=== PATIENT | male | born 1990 | race Caucasian/White ===

== ENCOUNTER 2018-11-29 18:42 | Inpatient (IN) | payer MEDICAID ==
[2018-11-29 19:33] LABS: ADD MAN DIFF? NO
[2018-11-29] MEDS: ONDANSETRON 4 MG INJ IV (19:37)
[2018-11-29] MEDS: SODIUM CHLORIDE 0.9% 1L BAG IV* (19:37)
[2018-11-29] MEDS: HYDROmorphONE 0.5 MG/0.5 ML SYG IV ×2 (19:38→20:59)
[2018-11-29 19:39] LABS: ABNORMAL IP MESSAGE 1; BASOPHIL # 0.1 10^3/ul (0.0-0.1); BASOPHILS % 0.3 % (0.0-2.0); HEMATOCRIT 49.4 % (42.0-52.0); HEMOGLOBIN 17.1 g/dl (14.0-18.0); LYMPHOCYTES # 2.8 10^3/ul (0.8-2.9); LYMPHOCYTES % 14.6 % (15.0-51.0); MEAN CORPUSCULAR HEMOGLOBIN 30.5 pg (29.0-33.0); MEAN CORPUSCULAR HGB CONC 34.6 g/dl (32.0-37.0); MEAN CORPUSCULAR VOLUME 88.1 fl (82.0-101.0); MEAN PLATELET VOLUME 11.1 fl (7.4-10.4); MONOCYTE # 1.8 10^3/ul (0.3-0.9); MONOCYTES % 9.7 % (0.0-11.0); NEUTROPHIL # 14.2 10^3/ul (1.6-7.5); PLATELET COUNT 214 10^3/UL (140-415); POSITIVE DIFF @See below; RED BLOOD COUNT 5.61 10^6/ul (4.70-6.10); RED CELL DISTRIBUTION WIDTH 13.7 % (11.5-14.5)
[2018-11-29 19:58] LABS: INR 1.08; PROTIME 14.1 Sec (11.9-14.9); PT RATIO 1.1
[2018-11-29 19:59] LABS: PARTIAL THROMBOPLASTIN TIME 30.6 Sec (23.0-35.0)
[2018-11-29] MEDS: PIPER-TAZO 3.375 GM IV (PMX) 100 ML IVPB (20:03)
[2018-11-29 20:06] LABS: ALANINE AMINOTRANSFERASE 215 IU/L (13-69); ALBUMIN 5.2 g/dl (3.3-4.9); ALKALINE PHOSPHATASE 76 IU/L (42-121); ANION GAP 21 (5-13); BILIRUBIN,INDIRECT 1.9 mg/dl (0-1.1); BILIRUBIN,TOTAL 1.9 mg/dl (0.2-1.3); BLOOD UREA NITROGEN 30 mg/dl (7-20); CALCIUM 9.9 mg/dl (8.4-10.2); CARBON DIOXIDE 19 mmol/L (21-31); CHLORIDE 104 mmol/L (97-110); CREATININE 3.46 mg/dl (0.61-1.24); Estimated GFR 21 mL/min (>60); GLUCOSE 122 mg/dl (70-220); POTASSIUM 3.2 mmol/L (3.5-5.1); SODIUM 144 mmol/L (135-144); TOTAL PROTEIN 8.9 g/dl (6.1-8.1)
[2018-11-29 20:14] LABS: ASPARTATE AMINO TRANSFERASE 1112 IU/L (15-46); ETHANOL < 10.0 mg/dl (0-0)
[2018-11-29 20:18] LABS: TROPONIN-I < 0.012 ng/ml (0.000-0.120)
[2018-11-29] MEDS: VANCOMYCIN 1 GM (PMX) 250 ML IVPB (20:59)
[2018-11-29 21:07] LABS: CREATINE KINASE 78407 IU/L (23-200)
[2018-11-29 22:21] LABS: LACTIC ACID 1.6 mmol/L (0.5-2.0)
[2018-11-29] MEDS ORDERED: BISACODYL (EC) 5 MG TAB PO (22:30)
[2018-11-29] MEDS ORDERED: LORAZEPAM 2 MG INJ IV (22:30)
[2018-11-29] MEDS ORDERED: morphine 2 MG INJ IV (22:30)
[2018-11-29] MEDS ORDERED: ONDANSETRON 4 MG INJ IV (22:30)
[2018-11-29] MEDS ORDERED: DOCUSATE SODIUM 100 MG CAP PO (22:30)
[2018-11-29] MEDS ORDERED: NACL 0.9% 3 ML SYG IV (22:30)
[2018-11-29] MEDS ORDERED: ACETAMINOPHEN 325 MG TAB PO (22:30)
[2018-11-29] MEDS: POTASSIUM CHLORIDE (SR) 20 MEQ TAB PO (23:12)
[2018-11-29] MEDS: SOD CHLORIDE 0.9% 1,000 ML IV (23:12)
[2018-11-29] MEDS: CEFTRIAXONE 2 GM/50 ML (PMX) 50 ML IVPB (23:13)
[2018-11-29] MEDS: HEPARIN 5,000 UNIT/1 ML VIAL SC (23:14)
[2018-11-30 00:04] LABS: MODE NASAL CANNULA; MetHgb Venous 0.2 %; Sample Type Blood venous; Site VENOUS LINE; Venous COHb 0.6 %; Venous Fraction OxyHgb 53.7 %; Venous Oxygen Sat 54.1 mmHG (55.0-75.0); Venous Total Hemglobin 15.2 g/dl
[2018-11-30 00:15] LABS: LACTIC ACID 1.2 mmol/L (0.5-2.0)
[2018-11-30 00:25] LABS: ADD UMIC YES; UR ASCORBIC ACID NEGATIVE (NEGATIVE); UR BILIRUBIN (Dip) NEGATIVE (NEGATIVE); UR BLOOD (Dip) 3+ mg/dL (NEGATIVE); UR CLARITY SLIGHTLY CLOUDY (CLEAR); UR COLOR YELLOW (YELLOW); UR GLUCOSE (Dip) NEGATIVE (NEGATIVE); UR KETONES (Dip) 2+ mg/dL (NEGATIVE); UR LEUKOCYTE ESTERASE (Dip) NEGATIVE Leu/ul (NEGATIVE); UR MUCUS FEW /HPF (NONE SEEN); UR NITRITE (Dip) NEGATIVE (NEGATIVE); UR RBC 4 /HPF (0-5); UR SPECIFIC GRAVITY (Dip) 1.023 (1.003-1.030); UR TOTAL PROTEIN (Dip) 2+ mg/dl (NEGATIVE); UR UROBILINOGEN (Dip) NEGATIVE (NEGATIVE); UR WBC 3 /HPF (0-5)
[2018-11-30 00:47] LABS: SODIUM,URINE RANDOM 138 mmol/L (30-90)
[2018-11-30] MEDS: NA BICARBONATE 8.4% 50 ML SYG IV (00:50)
[2018-11-30 01:48] LABS: URIC ACID 9.4 mg/dl (3.1-7.9)
[2018-11-30 01:50] LABS: AMPHETAMINE/METHAMPHETAMINE POSITIVE (NEGATIVE); BARBITURATES NEGATIVE (NEGATIVE); BENZODIAZEPINES NEGATIVE (NEGATIVE); CANNABINOIDS NEGATIVE (NEGATIVE); OPIATES NEGATIVE (NEGATIVE)
[2018-11-30 02:13] LABS: COCAINE NEGATIVE (NEGATIVE)
[2018-11-30] MEDS ORDERED: ONDANSETRON 4 MG INJ IV (02:30)
[2018-11-30 02:47] LABS: OSMOLALITY 295 mOsm/kg (280-295)
[2018-11-30 02:53] LABS: OSMOLALITY,URINE 727 mOsm/kg (250-1200)
[2018-11-30 03:12] LABS: TROPONIN-I 0.015 ng/ml (0.000-0.120)
[2018-11-30] MEDS: SOD CHLORIDE 0.9% 1,000 ML IV ×4 (03:17→16:57)
[2018-11-30 04:03] LABS: CK INDEX 0.1; CREATINE KINASE 50297 IU/L (23-200)
[2018-11-30 06:11] LABS: ADD MAN DIFF? NO
[2018-11-30 06:16] LABS: WHITE BLOOD COUNT 10.4 10^3/ul (4.8-10.8)
[2018-11-30 06:16] LABS: BASOPHILS % 0.4 % (0.0-2.0); EOSINOPHILS % 0.3 % (0.0-7.0); HEMATOCRIT 37.8 % (42.0-52.0); HEMOGLOBIN 12.6 g/dl (14.0-18.0); LYMPHOCYTES % 29.3 % (15.0-51.0); MEAN CORPUSCULAR HEMOGLOBIN 30.3 pg (29.0-33.0); MEAN CORPUSCULAR HGB CONC 33.3 g/dl (32.0-37.0); MEAN CORPUSCULAR VOLUME 90.9 fl (82.0-101.0); MEAN PLATELET VOLUME 11.2 fl (7.4-10.4); MONOCYTES % 9.5 % (0.0-11.0); NEUTROPHIL # 6.3 10^3/ul (1.6-7.5); NEUTROPHILS % 60.2 % (39.0-77.0); PLATELET COUNT 156 10^3/UL (140-415); RED BLOOD COUNT 4.16 10^6/ul (4.70-6.10); RED CELL DISTRIBUTION WIDTH 14.2 % (11.5-14.5)
[2018-11-30] MEDS: HEPARIN 5,000 UNIT/1 ML VIAL SC ×2 (06:19→14:53)
[2018-11-30 06:27] LABS: HEMOGLOBIN A1C 5.2 % (0-5.9)
[2018-11-30 06:56] LABS: ALANINE AMINOTRANSFERASE 157 IU/L (13-69); ALBUMIN 3.2 g/dl (3.3-4.9); ALBUMIN/GLOBULIN RATIO 1.39; ALKALINE PHOSPHATASE 39 IU/L (42-121); ANION GAP 6 (5-13); ASPARTATE AMINO TRANSFERASE 667 IU/L (15-46); BILIRUBIN,INDIRECT 1.1 mg/dl (0-1.1); BILIRUBIN,TOTAL 1.1 mg/dl (0.2-1.3); BLOOD UREA NITROGEN 20 mg/dl (7-20); CALCIUM 7.5 mg/dl (8.4-10.2); CARBON DIOXIDE 25 mmol/L (21-31); CHLORIDE 112 mmol/L (97-110); CHOL/HDL RATIO 6.2 RATIO; CHOLESTEROL 106 mg/dl (100-200); CREATININE 1.44 mg/dl (0.61-1.24); Estimated GFR 58 mL/min (>60); GLUCOSE 102 mg/dl (70-220); HDL CHOLESTEROL 17 mg/dl (28-63); LDL CHOLESTEROL,CALCULATED 67 mg/dl; MAGNESIUM 1.7 mg/dl (1.7-2.5); POTASSIUM 4.3 mmol/L (3.5-5.1); SODIUM 143 mmol/L (135-144); TOTAL PROTEIN 5.5 g/dl (6.1-8.1); TRIGLYCERIDES 110 mg/dl (0-149)
[2018-11-30] MEDS: LINEZOLID 600 MG/300 ML (PMX) 300 ML IVPB (08:28)
[2018-11-30] MEDS: ALLOPURINOL 100 MG TAB PO (08:59)
[2018-11-30 11:02] LABS: TROPONIN-I < 0.012 ng/ml (0.000-0.120)
[2018-11-30 12:38] LABS: ALANINE AMINOTRANSFERASE 184 IU/L (13-69); ALBUMIN 3.6 g/dl (3.3-4.9); ALKALINE PHOSPHATASE 44 IU/L (42-121); ANION GAP 8 (5-13); BILIRUBIN,INDIRECT 1.2 mg/dl (0-1.1); BILIRUBIN,TOTAL 1.2 mg/dl (0.2-1.3); BLOOD UREA NITROGEN 15 mg/dl (7-20); CALCIUM 7.9 mg/dl (8.4-10.2); CARBON DIOXIDE 23 mmol/L (21-31); CHLORIDE 109 mmol/L (97-110); CREATININE 0.99 mg/dl (0.61-1.24); Estimated GFR > 60 mL/min (>60); GLUCOSE 101 mg/dl (70-220); POTASSIUM 3.6 mmol/L (3.5-5.1); SODIUM 140 mmol/L (135-144)
[2018-11-30 12:41] LABS: CREATINE KINASE 57871 IU/L (23-200)
[2018-11-30 12:45] LABS: CK INDEX 0.1
[2018-11-30 12:49] LABS: ASPARTATE AMINO TRANSFERASE 729 IU/L (15-46)
[2018-11-30] MEDS: POTASSIUM CHLORIDE (SR) 20 MEQ TAB PO (14:29)
[2018-11-30 15:05] LABS: ADD UMIC YES; UR ASCORBIC ACID NEGATIVE (NEGATIVE); UR BILIRUBIN (Dip) NEGATIVE (NEGATIVE); UR BLOOD (Dip) 2+ mg/dL (NEGATIVE); UR CLARITY CLEAR (CLEAR); UR COLOR YELLOW (YELLOW); UR GLUCOSE (Dip) 1+ mg/dL (NEGATIVE); UR KETONES (Dip) 1+ mg/dL (NEGATIVE); UR LEUKOCYTE ESTERASE (Dip) 1+ Leu/ul (NEGATIVE); UR NITRITE (Dip) NEGATIVE (NEGATIVE); UR RBC 13 /HPF (0-5); UR SPECIFIC GRAVITY (Dip) 1.026 (1.003-1.030); UR TOTAL PROTEIN (Dip) 1+ mg/dl (NEGATIVE); UR UROBILINOGEN (Dip) 2+ mg/dL (NEGATIVE); UR WBC 5 /HPF (0-5)
== END 2018-11-30 20:07 | disposition left against medical advice (07) | DRG 558 ==
LOC: 6WM 22:11 → E/R 18:42
PROVIDERS: Family Medicine
DX: M62.82 Rhabdomyolysis (principal); N17.9 Acute kidney failure, unspecified; E87.2 Acidosis; F15.90 Other stimulant use, unspecified, uncomplicated; F11.90 Opioid use, unspecified, uncomplicated; Z72.0 Tobacco use; E87.6 Hypokalemia; K76.0 Fatty (change of) liver, not elsewhere classified; E86.0 Dehydration
CPT/HCPCS: 36415; 71045; 71250; 74176; 76705; 76775; 80053; 80061; 80307; 81001; 82550; 82553; 82803; 83036; 83605; 83735; 83930; 83935; 84300; 84443; 84484; 84560; 85025; 85610; 85730; 87040-91; 87086; 93005; 96374; 96375; 96376; 99285-25